=== PATIENT | female | born 1965 | race African-American/Black ===

== ENCOUNTER → 2019-08-05 | Outpatient (CLI) | payer OTHER ==
[~2019-08-05] MED LIST: GADOTERATE 10 MMOL/20 ML VIAL ONE
== END | disposition home or self-care (01) ==
LOC: CFH 10:20
PROVIDERS: ATTEND Surgery
DX: C50.512 Malignant neoplasm of lower-outer quadrant of left female breast (principal)
CPT/HCPCS: 77049; A9575; C8937; C8908

== ENCOUNTER 2019-08-08 07:49 | Outpatient (CLI) | payer OTHER ==
[2019-08-08] MEDS ORDERED: LIDOCAINE 1%-EPI 1:100K, 20ML ONE (08:15)
[2019-08-08] MEDS ORDERED: SODIUM BICARBONATE 4.2%, 5ML ONE (08:15)
[2019-08-13] MEDS ORDERED: LEVO75TA5 PO (12:26)
[2019-08-13] MEDS ORDERED: HYDR25TA6 PO (12:26)
[2019-08-13] MEDS ORDERED: NAPR220C2 PO (12:26)
[2019-08-13] MEDS ORDERED: vitamin b12 PO (12:26)
[2019-08-13] MEDS ORDERED: CHOL10003 PO (12:26)
[2019-08-13] MEDS ORDERED: ESSENTIAL OILS (12:26)
[2019-08-13] MEDS ORDERED: MAGN400T36 PO (12:26)
[2019-08-13] MEDS ORDERED: NAPR-816 PO (12:26)
[2019-08-13] MEDS ORDERED: ACET-1600 PO (12:26)
[2019-08-13] MEDS ORDERED: AMLO-150 PO (12:26)
== END 2019-08-08 23:59 | disposition home or self-care (01) ==
LOC: CFH 07:49
PROVIDERS: ATTEND Surgery
DX: C50.512 Malignant neoplasm of lower-outer quadrant of left female breast (principal); Z17.0 Estrogen receptor positive status [ER+]
CPT/HCPCS: 19285; 77065; J3490

== ENCOUNTER 2019-08-14 07:33 | Day surgery (SDC) | payer OTHER ==
[2019-08-13 12:16] LABS: ALBUMIN 3.7 g/dL (3.4-5.0); ANION GAP 8 mmol/L (5-15); CALCIUM 9.4 mg/dL (8.5-10.1); CHLORIDE 109 mmol/L (98-107)
[2019-08-13 12:19] LABS: ALANINE AMINOTRANSFERASE 19 U/L (12-78); ALKALINE PHOSPHATASE 87 U/L (45-117); BILIRUBIN,TOTAL 0.8 mg/dL (0.2-1.0); CREATININE 0.82 mg/dL (0.55-1.02); TOTAL PROTEIN 7.8 g/dL (6.4-8.2)
[~2019-08-14] VITALS: Ht 170.2 cm; Wt 119.0 kg
[~2019-08-14 07:33] MED LIST changes: +ACET-1600 PO; +AMLO-150 PO; +BUPIVACAINE/PF-EPI 0.5% 1:200K ONE; +CHOL10003 PO; +ESSENTIAL OILS; -GADOTERATE 10 MMOL/20 ML VIAL ONE; +HEPARIN 1,000 UNITS/ML, 10ML ONE; +HYDR25TA6 PO; +LEVO75TA5 PO; +MAGN400T36 PO; +NAPR-816 PO; +NAPR220C2 PO; +vitamin b12 PO
[2019-08-14 08:15] VITALS: BP 142/99
[2019-08-14] MEDS: LACTATED RINGERS 1,000 ML IV SCH ×2 (08:45→08:46)
[2019-08-14] MEDS ORDERED: MIDAZOLAM 1 MG/ML, 2ML ONE (08:56)
[2019-08-14] MEDS ORDERED: FENTANYL PF 250 MCG/5ML ONE (08:56)
[2019-08-14] MEDS ORDERED: CEFAZOLIN 1,000 MG ONE ×2 (08:59→09:26)
[2019-08-14] MEDS ORDERED: ONDANSETRON 2MG/ML, 2ML ONE (08:59)
[2019-08-14] MEDS ORDERED: DEXAMETHASONE 4 MG/ML, 1ML ONE (08:59)
[2019-08-14] MEDS ORDERED: PROPOFOL 10 MG/ML, 20ML ONE (08:59)
[2019-08-14] MEDS ORDERED: OXYcodone 5 MG/5 ML ORAL.SOL UDC PO PRN (09:30)
[2019-08-14] MEDS ORDERED: MEPERIDINE/PF 25MG/ML,1ML IVPush PRN (09:30)
[2019-08-14] MEDS ORDERED: LABETALOL 5MG/ML, 20ML IV PRN (09:30)
[2019-08-14] MEDS ORDERED: FENTANYL PF 100 MCG/2ML IV PRN (09:30)
[2019-08-14] MEDS ORDERED: PROMETHAZINE 25 MG/ML, 1ML IV PRN (09:30)
[2019-08-14] MEDS ORDERED: MORPHINE SULFATE 4 MG/ML, 1ML IVPush PRN (09:30)
[2019-08-14] MEDS ORDERED: HALOPERIDOL 5 MG/ML IV PRN (09:30)
[2019-08-14] MEDS ORDERED: HYDROmorphone 1 MG/ML, 1ML INJ IVPush PRN (09:30)
[2019-08-14] MEDS ORDERED: ACETAMINOPHEN 325 MG TABLET PO PRN (09:30)
[2019-08-14] MEDS ORDERED: hydrALAzine 20 MG/ML, 1ML IV PRN (09:30)
[2019-08-14 09:31] LABS: ALBUMIN 3.4 g/dL (3.4-5.0); ANION GAP 7 mmol/L (5-15); CHLORIDE 109 mmol/L (98-107)
[2019-08-14 09:34] LABS: ALANINE AMINOTRANSFERASE 18 U/L (12-78); ALKALINE PHOSPHATASE 81 U/L (45-117); BILIRUBIN,TOTAL 0.5 mg/dL (0.2-1.0); CREATININE 0.83 mg/dL (0.55-1.02); TOTAL PROTEIN 7.5 g/dL (6.4-8.2)
[2019-08-14] MEDS ORDERED: BUPIVACAINE/PF-EPI 0.5% 1:200K INFIL ONE (09:42)
[2019-08-14] MEDS ORDERED: HEPARIN 1,000 UNITS/ML, 10ML IV ONE (09:42)
== END 2019-08-14 11:35 | disposition home or self-care (01) ==
LOC: OUT 07:33
PROVIDERS: ATTEND Surgery
DX: C50.112 Malignant neoplasm of central portion of left female breast (principal); M41.9 Scoliosis, unspecified
CPT/HCPCS: 36415; 36561; 71045; 77001; 80053; 84703; C1788; J0690; J1100; J1644; J2250; J2405; J2704; J3010; J7120

== ENCOUNTER → 2019-08-15 | Outpatient (CLI) | payer OTHER ==
[~2019-08-15] MED LIST changes: -BUPIVACAINE/PF-EPI 0.5% 1:200K ONE; -HEPARIN 1,000 UNITS/ML, 10ML ONE; +OMNIPAQUE 350 MG/ML, 150 ML BOTTLE ONE
== END | disposition home or self-care (01) ==
LOC: CVU 06:55
PROVIDERS: ATTEND Internal Medicine Hematology & Oncology
DX: C50.812 Malignant neoplasm of overlapping sites of left female breast (principal); K76.89 Other specified diseases of liver; N83.292 Other ovarian cyst, left side; N83.291 Other ovarian cyst, right side; D73.89 Other diseases of spleen
CPT/HCPCS: 71260; 74177; 93306; Q9967

== ENCOUNTER → 2019-08-20 | Outpatient (CLI) | payer OTHER ==
[~2019-08-20] MED LIST changes: -OMNIPAQUE 350 MG/ML, 150 ML BOTTLE ONE
== END | disposition home or self-care (01) ==
LOC: RAD 10:48
PROVIDERS: ATTEND Internal Medicine Hematology & Oncology
DX: C50.812 Malignant neoplasm of overlapping sites of left female breast (principal)
CPT/HCPCS: 78306; A9503

== ENCOUNTER → 2019-11-25 | Outpatient (CLI) | payer OTHER | END | disposition home or self-care (01) | LOC: CVU 07:14 | PROVIDERS: ATTEND Internal Medicine Hematology & Oncology | DX: C50.812 Malignant neoplasm of overlapping sites of left female breast (principal); I10 Essential (primary) hypertension; Z85.3 Personal history of malignant neoplasm of breast | CPT/HCPCS: 93306 ==

== ENCOUNTER 2019-12-01 12:48 | Outpatient (CLI) | payer OTHER ==
[2019-12-01] MEDS ORDERED: GADOTERATE 7.5 MMOL/15 ML VIAL ONE (13:30)
== END 2019-12-01 23:59 | disposition home or self-care (01) ==
LOC: CFH 12:48
PROVIDERS: ATTEND Surgery
DX: C50.212 Malignant neoplasm of upper-inner quadrant of left female breast (principal); N63.20 Unspecified lump in the left breast, unspecified quadrant
CPT/HCPCS: 77049; A9575; C8908; C8937

== ENCOUNTER → 2019-12-31 | Outpatient (CLI) | payer OTHER ==
[~2019-12-31] MED LIST changes: +CYAN-27 PO; +LEVO88TA4 PO
[2019-12-31 13:38] LABS: MEAN CORPUSCULAR HEMOGLOBIN 37.5 pg (27.0-34.8); MEAN CORPUSCULAR VOLUME 117.4 fL (80-100); MEAN PLATELET VOLUME 6.6 fL (7.4-10.4); PLATELET COUNT 139 x10^3/uL (130-400); RED BLOOD COUNT 2.74 x10^6/uL (3.82-5.3); RED CELL DISTRIBUTION WIDTH 20.1 % (9.6-15.2)
[2019-12-31 13:45] LABS: CHLORIDE 107 mmol/L (98-107)
[2019-12-31 13:50] LABS: ALANINE AMINOTRANSFERASE 28 U/L (12-78); ALKALINE PHOSPHATASE 58 U/L (45-117); ANION GAP 6 mmol/L (5-15); BILIRUBIN,TOTAL 0.4 mg/dL (0.2-1.0); CALCIUM 8.7 mg/dL (8.5-10.1); CREATININE 0.73 mg/dL (0.55-1.02); TOTAL PROTEIN 5.8 g/dL (6.4-8.2)
[2019-12-31 14:08] LABS: BASOPHILS # (AUTO) 0.02 x10^3/uL (0-0.1); BASOPHILS % (AUTO) 0 % (0-1); EOSINOPHILS # (AUTO) 0.02 x10^3/uL (0-0.4); EOSINOPHILS % (AUTO) 0 % (1-7); LYMPHOCYTES # (AUTO) 1.19 x10^3/uL (1-3.4); LYMPHOCYTES % (AUTO) 28 % (22-44); MONOCYTES # (AUTO) 0.74 x10^3/uL (0.2-0.8); MONOCYTES % (AUTO) 17 % (2-9); NEUTROPHILS # (AUTO) 2.28 x10^3/uL (1.8-6.8); NEUTROPHILS % (AUTO) 54 % (42-75)
[2019-12-31 14:09] LABS: MD MORPH REVIEW ONLY
[2019-12-31 14:11] LABS: ANISOCYTOSIS 1+; POLYCHROMASIA 1+
[2019-12-31 14:13] LABS: <PLATELET ESTIMATE> ADEQUATE; SMALL PLATELETS 1+
== END | disposition home or self-care (01) ==
LOC: STAR 12:30
PROVIDERS: ATTEND Surgery
DX: Z01.812 Encounter for preprocedural laboratory examination (principal); C50.512 Malignant neoplasm of lower-outer quadrant of left female breast
CPT/HCPCS: 36415; 80053; 85025; 93005

== ENCOUNTER 2020-01-08 10:37 | Day surgery (SDC) | payer OTHER ==
[~2020-01-08] VITALS: Ht 170.2 cm; Wt 119.0 kg
[~2020-01-08 10:37] MED LIST changes: +BUPIVACAINE/EPI 0.5% 1:200K ONE; +ISOSULFAN BLUE 10 MG/ML, 5ML IV ONE
[2020-01-08] MEDS ORDERED: CHLORHEXIDINE 15 ML UDC MM ONE (11:02)
[2020-01-08] MEDS ORDERED: LIDOCAINE-MPF 1%, 2ML INFIL STA (11:02)
[2020-01-08] MEDS ORDERED: LACTATED RINGERS 1,000 ML IV ONE (11:02)
[2020-01-08 11:03] VITALS: BP 122/81
[2020-01-08] MEDS ORDERED: LIDOCAINE 1%, 20ML ONE (11:08)
[2020-01-08 11:55] LABS: HCG UR SG 1.017 (1.003-1.030)
[2020-01-08] MEDS ORDERED: FENTANYL PF 250 MCG/5ML ONE (15:32)
[2020-01-08] MEDS ORDERED: MIDAZOLAM 1 MG/ML, 2ML ONE (15:32)
[2020-01-08] MEDS ORDERED: VASOPRESSIN 20 UNIT/ML, 1ML ONE (15:46)
[2020-01-08] MEDS ORDERED: PHENYLEPHRINE 10 MG/ML ONE (15:46)
[2020-01-08] MEDS ORDERED: METHYLENE BLUE 50 MG/10 ML AMP ONE (16:28)
[2020-01-08] MEDS ORDERED: FENTANYL PF 100 MCG/2ML ONE ×2 (16:54→18:30)
[2020-01-08] MEDS ORDERED: ALBUTEROL SULFATE 2.5 MG/3 ML NPPB PRN (17:00)
[2020-01-08] MEDS ORDERED: MIDAZOLAM 1 MG/ML, 2ML IV PRN (17:00)
[2020-01-08] MEDS ORDERED: ACETAMINOPHEN 325 MG TABLET PO PRN (17:00)
[2020-01-08] MEDS ORDERED: PROMETHAZINE 25 MG/ML, 1ML IVPush PRN (17:00)
[2020-01-08] MEDS ORDERED: OXYcodone 5 MG/5 ML ORAL.SOL UDC PO PRN (17:00)
[2020-01-08] MEDS ORDERED: LABETALOL 5MG/ML, 20ML IV PRN (17:00)
[2020-01-08] MEDS ORDERED: MEPERIDINE/PF 25MG/0.5ML IVPush PRN (17:00)
[2020-01-08] MEDS ORDERED: EPHEDRINE 50 MG/ML, 1ML IVPush PRN (17:00)
[2020-01-08] MEDS ORDERED: HYDROmorphone 1 MG/ML, 1ML INJ IVPush PRN (17:00)
[2020-01-08] MEDS ORDERED: ONDANSETRON 2MG/ML, 2ML IVPush PRN ×2 (17:00→21:00)
[2020-01-08] MEDS ORDERED: PROMETHAZINE 12.5 MG SUPP PR PRN (17:00)
[2020-01-08] MEDS ORDERED: DIAZEPAM 5 MG/ML, 2ML IVPush PRN (17:00)
[2020-01-08] MEDS ORDERED: DIPHENHYDRAMINE 50 MG/ML, 1ML IVPush PRN (17:00)
[2020-01-08] MEDS ORDERED: METOPROLOL 1 MG/ML, 5ML IV PRN (17:00)
[2020-01-08] MEDS ORDERED: PROPOFOL 10 MG/ML, 20ML ONE (17:29)
[2020-01-08] MEDS ORDERED: CEFAZOLIN 1,000 MG ONE ×3 (17:29)
[2020-01-08] MEDS ORDERED: SUGAMMADEX 200 MG/2 ML IVPush ONE (17:29)
[2020-01-08] MEDS ORDERED: ROCURONIUM 10MG/ML,5ML ONE (17:29)
[2020-01-08] MEDS ORDERED: DEXAMETHASONE 4 MG/ML, 1ML ONE ×2 (17:29)
[2020-01-08] MEDS ORDERED: ONDANSETRON 2MG/ML, 2ML ONE ×2 (17:29)
[2020-01-08] MEDS: FENTANYL PF 100 MCG/2ML IV PRN ×2 (18:30→19:01)
[2020-01-08] MEDS ORDERED: OXYcodone 5 MG/5 ML ORAL.SOL UDC ONE (18:30)
[2020-01-08] MEDS ORDERED: HYDROmorphone 1 MG/ML, 1ML INJ ONE (19:31)
[2020-01-08] MEDS ORDERED: LACTATED RINGERS 1,000 ML IV SCH (21:00)
[2020-01-08] MEDS ORDERED: MORPHINE SULFATE 4 MG/ML, 1ML IVPush PRN (21:00)
== END 2020-01-08 23:02 | disposition home or self-care (01) ==
LOC: OUT 10:37 → EDSTATUS 14:30 → 4NE 19:55 → OUT 23:02
PROVIDERS: ATTEND Surgery
DX: C50.512 Malignant neoplasm of lower-outer quadrant of left female breast (principal); Z11.59 Encounter for screening for other viral diseases; N62 Hypertrophy of breast; I10 Essential (primary) hypertension; E03.9 Hypothyroidism, unspecified; Z79.899 Other long term (current) drug therapy; E66.01 Morbid (severe) obesity due to excess calories; Z68.41 Body mass index [BMI] 40.0-44.9, adult; Z72.89 Other problems related to lifestyle; Z87.891 Personal history of nicotine dependence; Z82.49 Family history of ischemic heart disease and other diseases of the circulatory system; Z83.3 Family history of diabetes mellitus; Z98.890 Other specified postprocedural states
CPT/HCPCS: 15200; 19302; 19318; 36415; 38792; 76098; 81025; 87635; 88305; 88307; 88329; 88333; 88334; A9541; C1729; J0690; J1100; J1170; J2250; J2370; J2405; J2704; J3010; J7120; Q9968; G0378

== ENCOUNTER 2020-01-28 08:52 | Outpatient (CLI) | payer OTHER ==
[~2020-01-28 08:52] MED LIST changes: -BUPIVACAINE/EPI 0.5% 1:200K ONE; -ISOSULFAN BLUE 10 MG/ML, 5ML IV ONE
== END 2020-01-28 23:59 | disposition home or self-care (01) ==
LOC: ROC 08:52
PROVIDERS: ATTEND Radiology Radiation Oncology
DX: C50.512 Malignant neoplasm of lower-outer quadrant of left female breast (principal); I10 Essential (primary) hypertension; E03.9 Hypothyroidism, unspecified; E66.01 Morbid (severe) obesity due to excess calories; Z87.891 Personal history of nicotine dependence; Z79.899 Other long term (current) drug therapy
CPT/HCPCS: 99214; G0463

== ENCOUNTER → 2020-02-17 | Outpatient (CLI) | payer OTHER | END | disposition home or self-care (01) | LOC: CVU 09:22 | PROVIDERS: ATTEND Internal Medicine Hematology & Oncology | DX: C50.812 Malignant neoplasm of overlapping sites of left female breast (principal) | CPT/HCPCS: 93308; 93321; 93325 ==

== ENCOUNTER 2020-04-12 08:00 | Outpatient (CLI) | payer OTHER | END 2020-04-12 23:59 | disposition home or self-care (01) | LOC: ROC 08:00 | PROVIDERS: ATTEND Radiology Radiation Oncology | DX: Z02.9 Encounter for administrative examinations, unspecified (principal) ==

== ENCOUNTER → 2020-04-29 | Outpatient (CLI) | payer OTHER | END | disposition home or self-care (01) | LOC: ROC 09:27 | PROVIDERS: ATTEND Radiology Radiation Oncology | DX: C50.512 Malignant neoplasm of lower-outer quadrant of left female breast (principal); I10 Essential (primary) hypertension; E03.9 Hypothyroidism, unspecified; E66.01 Morbid (severe) obesity due to excess calories; Z68.41 Body mass index [BMI] 40.0-44.9, adult; Z79.899 Other long term (current) drug therapy | CPT/HCPCS: 99212; G0463 ==

== ENCOUNTER 2020-05-12 10:36 | Outpatient (CLI) | payer OTHER | END 2020-05-12 23:59 | disposition home or self-care (01) | LOC: CFH 10:36 | PROVIDERS: ATTEND Internal Medicine Hematology & Oncology | DX: C50.812 Malignant neoplasm of overlapping sites of left female breast (principal); M85.89 Other specified disorders of bone density and structure, multiple sites | CPT/HCPCS: 77080 ==

== ENCOUNTER → 2020-05-31 | Outpatient (CLI) | payer OTHER | END | disposition home or self-care (01) | LOC: CVU 09:34 | PROVIDERS: ATTEND Internal Medicine Hematology & Oncology | DX: C50.812 Malignant neoplasm of overlapping sites of left female breast (principal); I10 Essential (primary) hypertension | CPT/HCPCS: 93308; 93321; 93325 ==

== ENCOUNTER 2020-08-19 14:40 | Outpatient (CLI) | payer OTHER | END 2020-08-19 23:59 | disposition home or self-care (01) | LOC: CVU 14:40 | PROVIDERS: ATTEND Internal Medicine Hematology & Oncology | DX: C50.812 Malignant neoplasm of overlapping sites of left female breast (principal) | CPT/HCPCS: 93306 ==

== ENCOUNTER 2020-09-30 07:20 | Outpatient (CLI) | payer OTHER | END 2020-09-30 23:59 | disposition home or self-care (01) | LOC: ROC 07:20 | PROVIDERS: ATTEND Radiology Radiation Oncology | DX: Z08 Encounter for follow-up examination after completed treatment for malignant neoplasm (principal); Z85.3 Personal history of malignant neoplasm of breast | CPT/HCPCS: 99212; G0463 ==

== ENCOUNTER → 2020-11-09 | Outpatient (CLI) | payer OTHER | END | disposition home or self-care (01) | LOC: RAD 14:48 | PROVIDERS: ATTEND Internal Medicine Hematology & Oncology | DX: C50.512 Malignant neoplasm of lower-outer quadrant of left female breast (principal); R52 Pain, unspecified | CPT/HCPCS: 71046 ==

== ENCOUNTER → 2020-11-09 | Outpatient (CLI) | payer OTHER | END | disposition home or self-care (01) | LOC: ROC 13:51 | PROVIDERS: ATTEND Radiology Radiation Oncology | DX: Z08 Encounter for follow-up examination after completed treatment for malignant neoplasm (principal); Z85.3 Personal history of malignant neoplasm of breast | CPT/HCPCS: 99213; G0463 ==

== ENCOUNTER → 2020-11-16 | Outpatient (CLI) | payer OTHER ==
[~2020-11-16] MED LIST changes: +OMNIPAQUE 350 MG/ML, 100ML BOTTLE ONE
== END | disposition home or self-care (01) ==
LOC: RAD 10:17
PROVIDERS: ATTEND Internal Medicine Hematology & Oncology
DX: C50.812 Malignant neoplasm of overlapping sites of left female breast (principal); K76.89 Other specified diseases of liver
CPT/HCPCS: 71260; 74177; 78306; A9503; Q9967

== ENCOUNTER → 2020-11-17 | Outpatient (CLI) | payer OTHER ==
[~2020-11-17] MED LIST changes: -OMNIPAQUE 350 MG/ML, 100ML BOTTLE ONE
== END | disposition home or self-care (01) ==
LOC: CVU 14:57
PROVIDERS: ATTEND Internal Medicine Hematology & Oncology
DX: C50.812 Malignant neoplasm of overlapping sites of left female breast (principal); I10 Essential (primary) hypertension
CPT/HCPCS: 93308; 93321; 93325